=== PATIENT | female | born 1980 | race African-American/Black ===

== ENCOUNTER 2021-09-01 03:12 | Emergency (ER) | payer MEDICAID ==
[~2021-09-01] VITALS: Ht 167.6 cm; Wt 79.0 kg
[2021-09-01] MEDS: KETOROLAC 60MG/2ML VIAL IM ONE ×2 (04:05→04:09)
[2021-09-01] MEDS ORDERED: NAPR-681 MT (07:40)
[2021-09-01 08:05] VITALS: BP 114/86
== END 2021-09-01 08:06 | disposition home or self-care (01) ==
LOC: ER 03:12
DX: M25.552 Pain in left hip (principal); M71.552 Other bursitis, not elsewhere classified, left hip; M25.522 Pain in left elbow
CPT/HCPCS: 73080; 73502; 99284; J1885; Z7610